=== PATIENT | male | born 1950 | race Caucasian/White ===

== ENCOUNTER 2020-02-28 09:55 | Outpatient (CLI) | payer MEDICARE, SELFPAY ==
--- NOTE | ~2020-02-28 | XR_ITS ---
EXAMINATION: XR knee RT min 4V DATE: 02/28/2020 10:28 INDICATION: Right knee pain TECHNIQUE: Four views of the right knee were obtained. COMPARISON: None. FINDINGS: Alignment is normal. No fracture or osteochondral lesion. There is advanced narrowing of th e medial compartment. Mild narrowing is noted in patellofemoral and lateral compartments. Marginal os teophytes surround the knee. No joint effusion/synovitis. Soft tissues are unremarkable. IMPRESSION: 1. 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 Reviewed, dictated and finalized at location A.
== END 2020-02-28 09:56 | disposition home or self-care (01) ==
PROVIDERS: PCP Emergency Medicine; Visit Provider Emergency Medicine
DX: M17.11 Unilateral primary osteoarthritis, right knee (principal)
CPT/HCPCS: 73564

== ENCOUNTER 2020-04-27 15:01 | Outpatient (CLI) | payer MEDICARE, SELFPAY ==
--- NOTE | ~2020-04-27 | XR_ITS ---
XR shoulder RT min 2V DATE: 04/27/2020 15:37 INDICATION: Right shoulder pain for months. No injury. TECHNIQUE: 4 views COMPARISON: None FINDINGS: No fracture or dislocation, periosteal reaction or bone destruction. There is degenerative spurring at the acromioclavicular joint. No abnormal shoulder soft tissue calcification. Diffuse idiopathic skeletal hyperostosis. IMPRESSION: Degenerative spurring at right acromioclavicular joint Reviewed, dictated and finalized at location A.
== END 2020-04-27 15:02 | disposition home or self-care (01) ==
LOC: ANHIMG 15:10
PROVIDERS: PCP Emergency Medicine; Visit Provider Emergency Medicine
DX: M19.011 Primary osteoarthritis, right shoulder (principal)
CPT/HCPCS: 73030

== ENCOUNTER 2020-10-09 14:18 | Outpatient (CLI) | payer MEDICARE, SELFPAY ==
--- NOTE | ~2020-10-09 | US_ITS ---
EXAMINATION: US art doppler w press LE BI DATE: 10/09/2020 15:12 INDICATION: Hypertension and atherosclerosis with tinea unguium. TECHNIQUE: Segmental pressures and plethysmographic and Doppler waveforms of the brachial and lower e xtremity arteries were obtained. COMPARISON: None. FINDINGS: Right and left brachial artery pressures of 114 mm Hg and 125 mm Hg, respectively, are concordant (no rmal difference <= 30 mmHg). The right and left high-thigh pressure indices were unable to be obtaine d due to inability to occlude the arteries about the level of the ankles in either lower limb (normal > 1.2). The right ankle-brachial index (SHAWN) is 1.24 (normal >= 0.9-1). The right great toe-brachial index (T BI) is 1.18 (normal >= 0.6-0.8). Arterial waveforms are triphasic at the right common femoral and sup erficial femoral arteries and biphasic more distally with brisk systolic upstrokes throughout. The left SHAWN is 1.33. The left TBI is 0.85. Arterial waveforms are triphasic at the left common femor al and biphasic in the more distal arteries with brisk systolic upstrokes throughout. IMPRESSION: 1. Normal SHAWN's and TBI's bilaterally. No significant occlusive disease. Reviewed, dictated and finalized at location B. PLEATER
== END 2020-10-09 14:19 | disposition home or self-care (01) ==
PROVIDERS: PCP Emergency Medicine
DX: B35.1 Tinea unguium (principal); I70.213 Atherosclerosis of native arteries of extremities with intermittent claudication, bilateral legs; L60.3 Nail dystrophy; R60.0 Localized edema
CPT/HCPCS: 93923

== ENCOUNTER 2021-12-24 10:48 | Outpatient (CLI) | payer MEDICARE, SELFPAY ==
[2021-12-24 11:16] LABS: Basophils Absolute Auto 0.1 K/mm3 (0.0-0.1); Basophils Percent Auto 1.2 % (0.2-1.2); Eosinophils Absolute Auto 0.2 K/mm3 (0-0.3); Hemoglobin 18.5 g/dL (14.0-18.0); Immature Granulocyte Absolute 0.02 K/mm3 (0.00-0.031); Immature Granulocyte Percent A 0.3 % (0-0.5); Lymphocytes Percent Auto 19.8 % (18.3-44.2); Mean Corpuscular Hemoglobin 33.2 pg (26-34); Mean Corpuscular Volume 100.4 fl (80-100); Mean Platelet Volume 10.5 fl (7.4-10.4); Monocytes Absolute Auto 0.7 K/mm3 (0.1-0.6); Monocytes Percent Auto 11.9 % (2.6-8.5); Neutrophils Absolute Auto 3.9 K/mm3 (1.3-6.7); Neutrophils Percent Auto 63.8 % (45.5-73.1); Platelet Count Result 176 k/mm3 (150-375); Red Blood Count 5.58 M/mm3 (4.6-6.20); White Blood Count 6.1 K/mm3 (4.5-10.0)
[2021-12-26 11:49] LABS: Erythropoietin (EPO) 10.9 mIU/mL (2.6-18.5)
[2021-12-31 17:09] LABS: CALR Exon 9 Mutation Not Detected (Not Detected); CSF3R Exon 14/17 Mutation Not Detected (Not Detected); Clinical Indication Not Given; JAK2 Exon 12 Mutation Not Detected (Not Detected); JAK2 V617F Mutation Not Detected (Not Detected); MPL Exon 10 Mutation Not Detected (Not Detected); Specimen Source Blood
== END 2021-12-24 10:49 | disposition home or self-care (01) ==
LOC: ANHLAB 10:50
PROVIDERS: PCP Emergency Medicine; Visit Provider Internal Medicine Hematology & Oncology
DX: D75.1 Secondary polycythemia (principal)
CPT/HCPCS: 36415; 81219; 81270; 81402; 81403; 81479; 82668; 85025

== ENCOUNTER → 2022-01-18 17:07 | Outpatient (CLI) | payer MEDICARE, SELFPAY ==
--- NOTE | ~2022-01-18 | XR_ITS ---
XR lumbar spine 2-3V DATE: 01/18/2022 17:27 INDICATION: Low back pain TECHNIQUE: AP, lateral, coned lateral lumbosacral views COMPARISON: None FINDINGS: There is minimal levoscoliosis of the lumbar spine. No fracture or bone destruction of the lumbar spine. The lumbar pedicles are intact. There is mild to moderate degenerative disc disease of the lumbar spine. No spondylolisthesis. There is degenerative change at the apophyseal joints of the lower lumbar and lumbosacral area in particula r. There is degenerative change at the sacroiliac joints. Bilateral hip osteoarthritis. IMPRESSION: Minimal lumbar levoscoliosis Mild to moderate degenerative disc disease of the lumbar spine Degenerative change at the sacroiliac and hip joints Reviewed, dictated and finalized at location A.
== END ==
PROVIDERS: PCP Emergency Medicine; Visit Provider Emergency Medicine
DX: M51.36 Other intervertebral disc degeneration, lumbar region (principal)
CPT/HCPCS: 72100

== ENCOUNTER 2022-07-15 15:03 | Outpatient (CLI) | payer MEDICARE, SELFPAY ==
--- NOTE | ~2022-07-15 | XR_ITS ---
EXAMINATION: XR hip BI wo pelvis DATE: 07/15/2022 15:34 INDICATION: Bilateral hip pain. TECHNIQUE: 2 views of each hip were obtained. COMPARISON: None. FINDINGS: Bone alignment is normal. No fracture. There is mild lumbar spondylosis. There is moderate osteoarthritis of the hips. IMPRESSION: 1. Moderate osteoarthritis of the hips. Reviewed, dictated and finalized at location A.
== END 2022-07-15 15:04 | disposition home or self-care (01) ==
LOC: ANHIMG 15:08
PROVIDERS: PCP Emergency Medicine; Visit Provider Emergency Medicine
DX: M16.0 Bilateral primary osteoarthritis of hip (principal)
CPT/HCPCS: 73521

== ENCOUNTER 2023-09-16 15:52 | Emergency (ER) | payer MEDICARE, SELFPAY ==
[2023-09-16 16:04] VITALS: BP 120/95; PULSE 129; RESP 16; TEMP 36.8; O2SAT 99
--- NOTE | 2023-09-16 16:06 | ED.SKABFB ---
HPI - Skin/Abscess/Foreign Bdy General Chief complaint: Skin/Abscess/Foreign Body Stated complaint: Bump On Right Side Body Time Seen by Provider: 09/16/23 15:55 Source: patient Mode of arrival: ambulatory Limitations: no limitations History of Present Illness HPI narrative: Patient is a 72-year-old male who presents with wound to right side of trunk. Patient unsure when it started but states it probably started the beginning of August. Patient states it started draining today. Denies any fever, chills, nausea, vomiting, diarrhea. Related Data Home Medications Medication Instructions Recorded Confirmed amlodipine 10 mg tablet 10 mg PO DAILY 04/27/20 09/16/23 fenofibrate nanocrystallized 145 145 mg PO DAILY 04/27/20 09/16/23 mg tablet lisinopril 40 mg tablet 40 mg PO DAILY 04/27/20 09/16/23 metformin 500 mg tablet 500 mg PO DAILY 04/27/20 09/16/23 aspirin 81 mg capsule 81 mg PO DAILY 01/11/22 09/16/23 carvedilol 25 mg tablet 25 mg PO BID 01/11/22 09/16/23 Allergies Allergy/AdvReac Type Severity Reaction Status Date / Time No Known Drug Allergies Allergy Unknown nothing Verified 09/16/23 16:03 Review of Systems Review of Systems: All systems reviewed & are unremarkable except as noted in HPI and below Constitutional: Constitutional: Denies body ache(s), Denies chills, Denies fatigue, Denies fever(s), Denies headache(s), Denies malaise and Denies weakness Eyes: Eyes: Denies blurry vision, Denies irritation and Denies loss of vision ENT: Denies otalgia, Denies headache(s), Denies nasal discharge, Denies sinus pain and Denies sore throat Cardiovascular: Cardiovascular: Denies chest pain, Denies irregular heart rhythm and Denies dyspnea Respiratory: Respiratory: Denies dyspnea Gastrointestinal: Gastrointestinal: Denies abdominal pain, Denies melena, Denies hematochezia, Denies diarrhea, Denies nausea and Denies vomiting Musculoskeletal: Musculoskeletal: Denies back pain, Denies myalgias and Denies arthralgias Integumentary/Breasts: Skin/Breast: Denies pruritus, Denies rash and Reports wounds Neurologic: Denies headache(s), Denies loss of vision and Denies weakness Psychiatric: Psychiatric: Reports no additional psychiatric complaints Endocrine: Endocrine: Denies fatigue PMFSH Social History Social History Smoking status: Never smoker Substance use: current Comments At time of signature, agree with nursing past medical, surgical, social and family history. There is no relevant family history pertinent to the presenting complaint. Exam Const: General: cooperative, healthy appearing, comfortable, no acute distress and well nourished Nutritional Appearance: well nourished Orientation/consciousness: patient oriented x3 Limitations: no limitations HENMT: Head: normal to inspection, normocephalic and atraumatic Ears: hearing grossly normal bilaterally and external ears normal Face/Nose/Sinus: Normal external nose present, normal facial exam and face symmetric Face and sinus: normal facial exam and face symmetric Mouth: Yes lip normal Eyes: General: appearance normal, both eyes and all related structures Alignment and Position: alignment normal and position normal Periorbital: periorbital findings normal Eyelids: eyelids normal Pupils: Equal, round and reactive pupils present EOM: EOMs intact bilaterally Neck: Neck: normal visual inspection, full ROM and supple Chest: Chest palpation & inspection: normal inspection of the chest Resp: Effort & Inspection: normal respiratory effort and able to speak in complete sentences Auscultation: clear to auscultation bilaterally Cardio: Rate: regular rate Rhythm: regular rhythm Heart sounds: S1 normal heart sound present and S2 normal heart sound present GI: Inspection: normal to inspection Skin: General skin exam: normal color and no rashes or lesions noted Wounds: wounds noted right flank size (
== END 2023-09-16 16:35 | disposition home or self-care (01) ==
PROVIDERS: Emergency Provider Nurse Practitioner Family; PCP Emergency Medicine
DX: L02.219 Cutaneous abscess of trunk, unspecified (principal)
CPT/HCPCS: 87070; 87075; 87205; 99213; G0463